=== PATIENT | male | born 2000 | race Caucasian/White ===

== ENCOUNTER 2023-08-25 19:56 | Emergency (ER) | payer OTHER, SELFPAY ==
[2023-08-25 20:03] VITALS: BP 143/86; PULSE 82; RESP 18; TEMP 37.4; O2SAT 96; BMI 25.7
--- NOTE | 2023-08-25 20:17 | DI.RAD.S_ITS ---
PROCEDURE: XR RIBS LT MIN 3V W CXR1V INDICATIONS: pain s/p fall while snowboarding TECHNIQUE: 4 views of the ribs were acquired, along with a single view chest. COMPARISON: None. FINDINGS: Surgical changes and devices: None. Bones and chest wall: No fractures or dislocations. No suspicious bony lesions. Overlying soft tissues appear unremarkable. S shaped scoliotic curvature of the spine. Lungs and pleura: No pleural effusions or pneumothorax. Lungs appear clear. Mediastinum: Mediastinal contours appear normal. Heart size is normal. IMPRESSION: No displaced rib fracture or pneumothorax. Dictated by: Deshawn Weeks M.D. on 08/25/2023 at 21:18 Approved by: Deshawn Weeks M.D. on 08/25/2023 at 21:19
--- NOTE | 2023-08-25 21:31 | ED_ITS ---
HPI - Fall General Chief Complaint: Fall Stated Complaint: lt sided rib pain, back pain Time Seen by Provider: 08/25/23 21:23 Source: patient Mode of arrival: Ambulatory History of Present Illness HPI Narrative: Otherwise healthy 23-year-old male here for evaluation of right-sided mid posterior rib pain. He states that the symptoms occurred when he was snowboarding earlier today. He states he fell and hit his back on the snow. Has had discomfort in a fairly specific area in his back since then. No problems breathing. No other injuries from the event. Has not tried anything for the symptoms prior to arrival. Review of Systems Constitutional Constitutional: Reports system reviewed and no additional complaints, except as documented Respiratory Respiratory: Reports system reviewed and no additional complaints, except as documented Gastrointestinal Gastrointestinal: Reports system reviewed and no additional complaints, except as documented Musculoskeletal Musculoskeletal: Reports system reviewed and no additional complaints, except as documented Integumentary/Breasts Skin/Breast: Reports system reviewed and no additional complaints, except as documented Patient History Social History Smoking Status: Never smoker Smoking Status: Never smoker alcohol intake frequency: a few times a week Substance Use Type: does not use Exam Initial Vital Signs Initial Vital Signs: Vital Signs Temperature 99.3 F 08/25/23 20:03 Pulse Rate 82 08/25/23 20:03 Respiratory Rate 18 08/25/23 20:03 Blood Pressure 143/86 H 08/25/23 20:03 Pulse Oximetry 96 08/25/23 20:03 Oxygen Delivery Method Room Air 08/25/23 20:03 Const General: cooperative and comfortable HENMT Head: normal to inspection and normocephalic Resp Effort & Inspection: normal respiratory effort Auscultation: clear to auscultation bilaterally Cardio Rate: regular rate Back/Spine/Pelvis Cervical Spine: No cervical spinal tenderness Thoracic/Lumbar Spine: paraspinal tenderness (Left-sided posterior midthoracic paraspinal tenderness), No thoracic spinal tenderness and No lumbar spinal tenderness Skin General: no rashes or lesions noted Course Orders Ordered: ED Orders 08/25/23 20:17 XR ribs LT min 3V w CXR1V Stat Vital Signs Vital signs: Vital Signs - 8 hr 08/25/23 20:03 08/25/23 21:37 Temperature 99.3 F Pulse Rate 82 69 Respiratory Rate 18 14 Blood Pressure 143/86 H 127/74 Pulse Oximetry 96 97 Oxygen Delivery Method Room Air Room Air MDM - Fall Imaging Data rib x-ray: Radiologist's Impression: PROCEDURE: XR RIBS LT MIN 3V W CXR1V INDICATIONS: pain s/p fall while snowboarding TECHNIQUE: 4 views of the ribs were acquired, along with a single view chest. COMPARISON: None. FINDINGS: Surgical changes and devices: None. Bones and chest wall: No fractures or dislocations. No suspicious bony lesions. Overlying soft tissues appear unremarkable. S shaped scoliotic curvature of the spine. Lungs and pleura: No pleural effusions or pneumothorax. Lungs appear clear. Mediastinum: Mediastinal contours appear normal. Heart size is normal. IMPRESSION: No displaced rib fracture or pneumothorax. [facility] Narrative Medical decision making narrative: X-ray shows no displaced rib fractures. Did discuss the possibility of a n ondisplaced fracture. Lungs are clear. No bruising over the skin. No indication for further radiologic studies. Discussed the expected course over the next several days/week. He was given return precautions. He expressed understanding and agreement. Discharge Plan Departure Patient Disposition: Home Clinical Impression: Rib contusion Instructions: SHANNEN for Rib Contusion Activity Restrictions/Additional Instructions: You can take Tylenol/ibuprofen for any discomfort. Your x-ray today did not show any signs of a fracture. Return to the emergency department for new symptoms. Referrals: Robin Oro DO [Primary Care Provider] - Stand Alone Forms: Patient Portal/API, Work Release Note
[2023-08-25 21:37] VITALS: BP 127/74; PULSE 69; RESP 14; O2SAT 97
== END 2023-08-25 21:39 | disposition home or self-care (01) ==
PROVIDERS: Emergency Provider Emergency Medicine; PCP Student in an Organized Health Care Education/Training Program
DX: S20.212A Contusion of left front wall of thorax, initial encounter (principal); V00.311A Fall from snowboard, initial encounter
CPT/HCPCS: 71101; 99281; 99283